=== PATIENT | female | born 1975 | race Caucasian/White ===

== ENCOUNTER 2017-12-10 01:05 | Emergency (ER) | payer OTHER, SELFPAY ==
--- NOTE | 2017-12-10 08:09 | CT ---
PRELIMINARY REPORT/[facility]/EMERGENCY AFTER HOURS PROCEDURE: EXAM: CT Lumbar Spine Without Intravenous Contrast CLINICAL HISTORY: 42 years old, female; Pain; Low back pain TECHNIQUE: Axial computed tomography images of the lumbar spine without intravenous contrast. Coronal and sagittal reformatted images were created and reviewed. COMPARISON: No relevant prior studies available. FINDINGS: Vertebrae: Loss of vertebral body height, presumed degenerative No acute fracture. Discs/spinal canal/neural foramina: No acute findings. No significant spinal canal stenosis. Mild disc bulging at L4-L5 and L5-S1 with mild asymmetry of the anterior thecal sac Moderate foraminal stenosis at L5-S1 bilaterally. Mild foraminal stenosis at L4-L5 Soft tissues: Unremarkable. IMPRESSION: Mild degenerative changes in the lower lumbar spine most pronounced at L5-S1. Thank you for allowing us to participate in the care of your patient. Dictated and Authenticated by: Paul Vital MD 12/10/2017 2:11 AM Central Time ([place] & [place]) FINAL REPORT CT LUMBAR SPINE WITH CORONAL AND SAGITTAL REFORMATIONS: Date: 12/10/17 FINDINGS/IMPRESSION: I agree with the preliminary report given by Dr. Paul Vital of [facility]. POS: [facility]
== END 2017-12-10 02:35 | disposition home or self-care (01) ==
LOC: MADERS 01:05
DX: M54.41 Lumbago with sciatica, right side (principal); F17.210 Nicotine dependence, cigarettes, uncomplicated
CPT/HCPCS: 72131